=== PATIENT | male | born 1970 | race Caucasian/White ===

== ENCOUNTER 2017-10-31 06:59 | Emergency (ER) | payer OTHER ==
[~2017-10-31] VITALS: Ht 185.4 cm; Wt 111.1 kg
[2017-10-31] MEDS ORDERED: GENTAK5 ML TOP (07:59)
[2017-10-31] MEDS ORDERED: GENTAMICIN 0.1%15 G2 TOP (07:59)
[2017-10-31 09:08] VITALS: BP 155/85
== END 2017-10-31 09:12 | disposition home or self-care (01) ==
LOC: M.ERS 06:59
DX: T65.891A Toxic effect of other specified substances, accidental (unintentional), initial encounter (principal); H10.213 Acute toxic conjunctivitis, bilateral; Y92.89 Other specified places as the place of occurrence of the external cause